=== PATIENT | male | born 1990 | race African-American/Black ===

== ENCOUNTER 2021-01-23 05:22 | Emergency (ER) | payer OTHER ==
[~2021-01-23] VITALS: Ht 185.4 cm; Wt 79.4 kg
[~2021-01-23 05:22] MED LIST: CIPROFLOXACIN500 M1 PO; IBUPROFEN 600600 M1 PO; PROAIR HFA8.5 GM INH; SINGULAIR 10 MG10 M1 PO
[2021-01-23] MEDS ORDERED: ACETAMINOPHEN PO (05:36)
[2021-01-23] MEDS ORDERED: AMOXICILLIN875 MG PO (06:26)
[2021-01-23 07:03] VITALS: BP 138/87
== END 2021-01-23 07:05 | disposition home or self-care (01) ==
LOC: ER 05:22
DX: K02.9 Dental caries, unspecified (principal); J45.909 Unspecified asthma, uncomplicated; Z91.09 Other allergy status, other than to drugs and biological substances; Z79.899 Other long term (current) drug therapy